=== PATIENT | female | born 1930 | race Caucasian/White ===

== ENCOUNTER 2018-04-27 11:02 | Emergency (ER) | payer OTHER ==
[~2018-04-27] VITALS: Ht 162.6 cm; Wt 57.2 kg
[2018-04-27] MEDS ORDERED: CARVEDILOL25 MG PO (11:17)
[2018-04-27] MEDS ORDERED: ASA81 MG PO (11:17)
[2018-04-27] MEDS ORDERED: ISORDIL10 MG PO (11:18)
== END 2018-04-27 13:12 | disposition home or self-care (01) ==
LOC: ER 11:02
DX: B34.9 Viral infection, unspecified (principal); J11.1 Influenza due to unidentified influenza virus with other respiratory manifestations

== ENCOUNTER 2019-12-07 16:50 | Emergency (ER) | payer OTHER ==
[~2019-12-07] VITALS: Ht 149.9 cm; Wt 57.2 kg
[~2019-12-07 16:50] MED LIST: ASA81 MG PO; CARVEDILOL25 MG PO; ISORDIL10 MG PO
[2019-12-07] MEDS ORDERED: ALDACTONE25 MG (18:10)
[2019-12-07] MEDS ORDERED: ASTORVASTATIN (18:12)
[2019-12-07] MEDS ORDERED: MEMANTINE HCL10 MG (18:13)
== END 2019-12-08 00:04 | disposition home or self-care (01) ==
LOC: ER 16:50 → EDBD 17:02 → ER 12-08 00:04
DX: I87.2 Venous insufficiency (chronic) (peripheral) (principal); R60.0 Localized edema; I10 Essential (primary) hypertension; Z03.818 Encounter for observation for suspected exposure to other biological agents ruled out

== ENCOUNTER 2020-02-07 23:23 | Emergency (ER) | payer OTHER ==
[~2020-02-07] VITALS: Ht 144.8 cm; Wt 57.2 kg
[~2020-02-07 23:23] MED LIST changes: +ALDACTONE25 MG; +ASTORVASTATIN; +MEMANTINE HCL10 MG
[2020-02-08] MEDS ORDERED: MOBIC15 MG PO (01:19)
[2020-02-08] MEDS ORDERED: CARVEDILOL6.25 MG PO (01:19)
[2020-02-08] MEDS ORDERED: SPIRONOLACTONE25 MG PO (01:19)
== END 2020-02-08 01:25 ==
LOC: ER 23:23
DX: S63.592A Other specified sprain of left wrist, initial encounter (principal); X50.0XXA Overexertion from strenuous movement or load, initial encounter; Y93.89 Activity, other specified; Y92.092 Bedroom in other non-institutional residence as the place of occurrence of the external cause; Y99.8 Other external cause status